=== PATIENT | male | born 1980 | race Caucasian/White ===

== ENCOUNTER 2018-05-03 17:20 | Emergency (ER) | payer SELFPAY | END 2018-05-03 17:48 | disposition left against medical advice (07) | LOC: ER 17:26 | DX: R10.9 Unspecified abdominal pain (principal); Z53.21 Procedure and treatment not carried out due to patient leaving prior to being seen by health care provider ==

== ENCOUNTER 2018-05-03 18:16 | Inpatient (IN) | payer SELFPAY ==
[~2018-05-03] VITALS: Ht 182.9 cm; Wt 92.5 kg
[2018-05-03 19:50] LABS: INR 0.99 (0.9-1.15); Partial Thromboplastin Time 25.1 sec (23.78-33.04); Prothrombin Time 10.6 sec (9.27-12.13)
[2018-05-03 20:00] LABS: Albumin 4.1 g/dL (3.4-5.0); BUN/Creatinine Ratio 13.1; Bilirubin, Total 0.5 mg/dL (0.2-1.0); Calcium 9.2 mg/dL (8.5-10.1); Potassium 4.1 mmol/L (3.5-5.1); Total Protein 7.5 g/dL (6.4-8.2)
[2018-05-03] MEDS ORDERED: SODIUM CHLORIDE 0.9% 1,000 ML IV ONE (22:45)
[2018-05-04 03:56] LABS: Basophils # (auto) 0 uL; Basophils % (auto) 0.5 % (0.0-2.0); Eosinophils # (auto) 0.1 uL; Hematocrit 40.2 % (41.0-53.0); Hemoglobin 13.6 g/dL (13.5-17.5); Lymphocytes # (auto) 2.2 uL; Lymphocytes % (auto) 28.8 % (10.0-50.0); Mean Corpuscular Hemoglobin 30.7 pg (28.0-32.0); Mean Corpuscular Hgb Conc. 33.8 g/dL (32.0-36.0); Mean Corpuscular Volume 90.8 fL (80.0-100.0); Monocytes # (auto) 0.6 uL; Monocytes % (auto) 7.4 % (0.0-12.0); Neutrophils # (auto) 4.7 uL; Neutrophils % (auto) 62.3 % (37.0-80.0); Platelet Count (auto) 253 10^3/uL (140-450); Red Blood Cells 4.43 10^6/uL (4.5-5.90); Red Cell Distribution Width 14.2 % (11.8-14.3); White Blood Cell 7.5 10^3/uL (4.4-10.8)
[2018-05-04] MEDS ORDERED: ONDANSETRON HCL 4 MG/2 ML VIAL IV PRN (05:30)
[2018-05-04] MEDS ORDERED: ACETAMINOPHEN 325 MG TAB PO PRN (05:30)
[2018-05-04] MEDS ORDERED: TEMAZEPAM 15 MG CAP PO PRN (05:30)
[2018-05-04] MEDS ORDERED: HYDROcodone-ACET 5/325MG TAB PO PRN (05:30)
[2018-05-04 09:32] LABS: Urine Bacteria NONE SEEN /hpf (None Seen); Urine Blood TRACE /uL (Negative); Urine Mucus FEW (None Seen); Urine Specific Gravity 1.023 (1.001-1.035); Urine WBC 10 /hpf (0 - 3)
[2018-05-04] MEDS: FAMOTIDINE 20 MG TAB PO SCH ×2 (09:53→22:00)
[2018-05-04 10:40] VITALS: BP 106/71
[2018-05-04 13:00] VITALS: BP 106/71
[2018-05-04 17:00] VITALS: BP 133/76
[2018-05-04 22:00] VITALS: BP 125/81
[2018-05-05 05:00] VITALS: BP 104/57
[2018-05-05 07:19] LABS: Basophils # (auto) 0 uL; Basophils % (auto) 0.5 % (0.0-2.0); Eosinophils # (auto) 0.2 uL; Eosinophils % (auto) 2.9 % (0.0-7.0); Hematocrit 42.2 % (41.0-53.0); Hemoglobin 14.4 g/dL (13.5-17.5); Lymphocytes # (auto) 1.7 uL; Lymphocytes % (auto) 30.9 % (10.0-50.0); Mean Corpuscular Hemoglobin 31.3 pg (28.0-32.0); Mean Corpuscular Hgb Conc. 34.1 g/dL (32.0-36.0); Mean Corpuscular Volume 91.7 fL (80.0-100.0); Monocytes # (auto) 0.4 uL; Monocytes % (auto) 6.9 % (0.0-12.0); Neutrophils # (auto) 3.2 uL; Neutrophils % (auto) 58.8 % (37.0-80.0); Nucleated Red Blood Cells % 0.1 %; Platelet Count (auto) 258 10^3/uL (140-450); Red Cell Distribution Width 13.6 % (11.8-14.3); White Blood Cell 5.4 10^3/uL (4.4-10.8)
[2018-05-05 07:30] LABS: Albumin 3.6 g/dL (3.4-5.0); BUN/Creatinine Ratio 13.7; Calcium 8.6 mg/dL (8.5-10.1)
[2018-05-05 07:32] LABS: Bilirubin, Total 0.6 mg/dL (0.2-1.0); Total Protein 6.7 g/dL (6.4-8.2)
[2018-05-05 08:59] VITALS: BP 116/76
[2018-05-05] MEDS: FAMOTIDINE 20 MG TAB PO SCH (10:00)
[2018-05-05 13:26] VITALS: BP 124/70
== END 2018-05-05 16:00 | disposition home health service (06) | DRG 687 ==
LOC: EDBD 18:16 → ER 18:20 → OVERFLOW 18:21 → CENTRAL 05-04 10:40
PROVIDERS: ADMIT Nurse Practitioner; ATTEND Family Medicine
DX: C64.1 Malignant neoplasm of right kidney, except renal pelvis (principal); N39.0 Urinary tract infection, site not specified; N20.0 Calculus of kidney; Z80.51 Family history of malignant neoplasm of kidney; Z87.442 Personal history of urinary calculi; Z87.891 Personal history of nicotine dependence; Z90.5 Acquired absence of kidney; Z88.7 Allergy status to serum and vaccine
CPT/HCPCS: 36415; 71250; 74176; 76775; 80053; 81001; 82150; 83690; 85025; 85610; 85730; 96360